=== PATIENT | female | born 1990 | race Caucasian/White ===

== ENCOUNTER → 2023-11-03 | Day surgery (SDC) | payer BC ==
[~2023-11-03] MED LIST: Ketorolac 30 MG/ML SDV ONE; Lidocaine 1% 5 ML VIAL ONE; Ondansetron 4 MG/2 ML SDV ONE; Propofol 200 MG/20 ML SDV ONE; Water For Injection, Sterile 20 ML ONE; fentaNYL 100 MCG/2 ML SDV ONE
[2023-11-03] MEDS: Lactated Ringers 1,000 ML IV SCH (08:25)
[2023-11-03] MEDS: Scopalamine 1mg/3day Transdermal Patch TOP ONE (08:32)
== END | disposition home or self-care (01) ==
LOC: MW.SDS 07:55
PROVIDERS: ATTEND Obstetrics & Gynecology
DX: N84.0 Polyp of corpus uteri (principal); N97.8 Female infertility of other origin; N72 Inflammatory disease of cervix uteri; N83.8 Other noninflammatory disorders of ovary, fallopian tube and broad ligament; E10.9 Type 1 diabetes mellitus without complications; Z79.4 Long term (current) use of insulin; Z88.0 Allergy status to penicillin; Z79.899 Other long term (current) drug therapy
CPT/HCPCS: 58558; 81025; A9270; C1729; J0131; J1885; J2405; J2704; J3010; J7120; 00952; J3490